=== PATIENT | male | born 1995 | race Caucasian/White ===

== ENCOUNTER 2022-08-23 17:32 | Emergency (ER) | payer SELFPAY | END 2022-08-23 18:44 | disposition home or self-care (01) | LOC: NAV ERS 17:32 | DX: H61.21 Impacted cerumen, right ear (principal); B34.9 Viral infection, unspecified; I10 Essential (primary) hypertension; F17.210 Nicotine dependence, cigarettes, uncomplicated; Z20.822 Contact with and (suspected) exposure to COVID-19 | CPT/HCPCS: 99283; U0003; U0005 ==